=== PATIENT | male | born 1980 | race Caucasian/White ===

== ENCOUNTER 2017-10-19 11:27 | Emergency (ER) | payer BC ==
--- NOTE | 2017-10-19 11:40 | EDM.PDOC ---
ED HPI GENERAL MEDICAL PROBLEM - General Chief Complaint: ENT Problem Stated Complaint: left lower tooth pain Time Seen by Provider: 10/19/17 11:35 Source of Information: Reports: Patient, Family History Limitations: Reports: No Limitations - History of Present Illness INITIAL COMMENTS - FREE TEXT/NARRATIVE: Patient is 37-year-old who seen with chief complaint of left lower tooth ache patient states this has been going on for 2 weeks has been on clindamycin and Motrin with no improvement has a schedule appointment with a dentist tomorrow Onset: Gradual Duration: Week(s):, Getting Worse Location: Reports: Face Quality: Reports: Ache, Throbbing Severity: Moderate Improves with: Reports: Medication Worsens with: Reports: None Context: Reports: Other (Dental cavity) Associated Symptoms: Reports: No Other Symptoms Treatments DETECTIVE NARCOTICS AND VICE: Reports: Acetaminophen, NSAIDS - Related Data Allergies Allergy/AdvReac Type Severity Reaction Status Date / Time No Known Allergies Allergy Verified 10/19/17 20:57 Home Meds: Home Meds . [No Known Home Meds] 10/19/17 [History] ED ROS GENERAL - Review of Systems Review Of Systems: See Below Constitutional: Reports: No Symptoms HEENT: Reports: Dental Pain Respiratory: Reports: No Symptoms Cardiovascular: Reports: No Symptoms Endocrine: Reports: No Symptoms GI/Abdominal: Reports: No Symptoms : Reports: No Symptoms Musculoskeletal: Reports: No Symptoms Skin: Reports: No Symptoms Neurological: Reports: No Symptoms Psychiatric: Reports: No Symptoms Hematologic/Lymphatic: Reports: No Symptoms Immunologic: Reports: No Symptoms ED EXAM, GENERAL - Physical Exam Exam: See Below Exam Limited By: No Limitations General Appearance: Alert, WD/WN, No Apparent Distress Ears: Normal External Exam, Normal Canal, Hearing Grossly Normal, Normal TMs Ear Exam: Bilateral Ear: Auricle Normal, Canal Normal, TM normal Nose: Normal Inspection, Normal Mucosa, No Blood Throat/Mouth: Other (Toothache) Head: Atraumatic, Normocephalic, Facial Swelling Neck: Normal Inspection, Supple, Non-Tender, Full Range of Motion Respiratory/Chest: No Respiratory Distress, Lungs Clear, Normal Breath Sounds, No Accessory Muscle Use, Chest Non-Tender Cardiovascular: Normal Peripheral Pulses, Regular Rate, Rhythm, No Edema, No Gallop, No JVD, No Murmur, No Rub GI/Abdominal: Normal Bowel Sounds, Soft, Non-Tender, No Organomegaly, No Distention, No Abnormal Bruit, No Mass (Male) Exam: Deferred Rectal (Males) Exam: Deferred Back Exam: Normal Inspection, Full Range of Motion, NT Extremities: Normal Inspection, Normal Range of Motion, Non-Tender, Normal Capillary Refill, No Pedal Edema Neurological: Alert, Oriented, CN II-XII Intact, Normal Cognition, Normal Gait, Normal Reflexes, No Motor/Sensory Deficits Psychiatric: Normal Affect, Normal Mood Course - Vital Signs Last Recorded V/S: Last Vital Signs Temp 98.1 F 10/19/17 11:27 Pulse 87 10/19/17 11:27 Resp 16 10/19/17 11:27 BP 142/120 H 10/19/17 11:27 Pulse Ox 99 10/19/17 11:27 Departure - Departure Time of Disposition: 11:39 Disposition: Home, Self-Care 01 Clinical Impression: Dental caries extending into dentin - Discharge Information Instructions: Acetaminophen; Codeine tablets Referrals: PCP,None [Primary Care Provider] - Forms: ED Department Discharge Care Plan Goals: Patient is to continue his clindamycin as order we'll start him on Tylenol No. 3 one tablet every 4-6 hours for pain he is to follow-up with the dentist of choice options given
== END 2017-10-19 11:55 | disposition home or self-care (01) ==
LOC: LL.ED 11:27
DX: K02.9 Dental caries, unspecified (principal)
CPT/HCPCS: 99282

== ENCOUNTER 2020-10-03 06:33 | Emergency (ER) | payer SELFPAY ==
[2020-10-03] MEDS ORDERED: Metoprolol Tartrate 25 MG Tab PO ONE (07:26)
--- NOTE | 2020-10-03 07:30 | EDM.PDOC ---
ED HPI GENERAL MEDICAL PROBLEM - General Chief Complaint: General Stated Complaint: HTN Time Seen by Provider: 10/03/20 07:00 Source of Information: Reports: Patient History Limitations: Reports: No Limitations - History of Present Illness INITIAL COMMENTS - FREE TEXT/NARRATIVE: Patient concerned that his blood pressure might be too high. Has own BP cuff at home and reports it was around 165/85. He restarted his BP meds last week after not taking them for a while (doesn't specify how long). Had some dizziness this morning which got him concerned. Didn't feel quite right. Does not have the pill bottles with him and does not remember what the medications are named. Denies other changes such as fever/chills/fatigue. No HEENT changes otherwise such as sore throat or congestion. No headache. No chest pain/palpitations/sweating. Denies nausea/emesis/bowel changes. No other acute changes reported. - Related Data Allergies Allergy/AdvReac Type Severity Reaction Status Date / Time Penicillins Allergy Rash Verified 10/03/20 06:45 Home Meds: Home Meds . [No Known Home Meds] 10/19/17 [History] Past Medical History - Past Health History Medical/Surgical History: Denies Medical/Surgical History HEENT History: Reports: Other (See Below) (Poor dental health) Cardiovascular History: Reports: Hypertension ED ROS GENERAL - Review of Systems Review Of Systems: Comprehensive ROS is negative, except as noted in HPI. ED EXAM, GENERAL - Physical Exam Exam: See Below Exam Limited By: No Limitations General Appearance: Alert, WD/WN, No Apparent Distress Eye Exam: Bilateral Eye: EOMI, PERRL Ears: Normal External Exam, Hearing Grossly Normal Nose: No: Nasal Deformity, Nasal Swelling, Nasal Drainage Throat/Mouth: Normal Lips, Normal Voice, No Airway Compromise, Other (Poor dental condition) Head: Atraumatic, Normocephalic Neck: Supple Respiratory/Chest: No Respiratory Distress, Lungs Clear, Normal Breath Sounds, No Accessory Muscle Use Cardiovascular: Normal Peripheral Pulses, Regular Rate, Rhythm, No Murmur GI/Abdominal: Normal Bowel Sounds, Soft, Non-Tender, No Distention (Male) Exam: Deferred Rectal (Males) Exam: Deferred Back Exam: No: CVA Tenderness (L), CVA Tenderness (R), Muscle Spasm Extremities: Normal Range of Motion, Normal Capillary Refill Neurological: Alert, Oriented, Normal Cognition, Normal Gait, No Motor/Sensory Deficits Psychiatric: Normal Affect, Normal Mood Skin Exam: Warm, Dry, Intact, Normal Color Course - Vital Signs Last Recorded V/S: Last Vital Signs Temp 36.4 C 10/03/20 06:34 Pulse 75 10/03/20 07:32 Resp 14 10/03/20 06:34 BP 128/85 10/03/20 07:32 Pulse Ox 100 10/03/20 06:34 - Orders/Labs/Meds Meds: Medications Discontinued Medications Generic Name Dose Route Start Last Admin Trade Name Kris PRN Reason Stop Dose Admin Metoprolol Tartrate 25 mg 10/03/20 07:26 10/03/20 07:32 Lopressor PO 10/03/20 07:27 25 mg ONETIME ONE Administration - Re-Assessments/Exams Free Text/Narrative Re-Assessment/Exam: 10/03/20 07:47 Patient's BP 146/99 in ER. Discussed with patient that it is high and Metoprolol 25mg ordered. He was given reassurance that the reading was not in the extremely high range. Patient declined any lab work/further evaluation at this time and instead wishes to follow up at the local [facility] for any lab work and further evaluation of hypertension. He was cautioned as far as his morning complaint of not feeling like usual self/dizziness may be from something else, such as developing viral illness. Advised to continue to observe for changes. Recommended to him to check his BP TID and keep log and bring that to his [facility] appointment. Precautions reviewed and he is to follow up in the ER for recheck if he has sudden worsening. He is agreeable with plan. Departure - Departure Time of Disposition: 07:26 Disposition: Home, Self-Care 01 Condition: Good Clinical Impression: Hypertension - Discharge Information *PRESCRIPTION DRUG MONITORING PROGRAM REVIEWED*: Not Applicable *COPY OF PRESCRIPTION DRUG MONITORING REPORT IN PATIENT DIDIER: Not Applicable Referrals: Cait Thornton PA-C [Primary Care Provider] - Forms: ED Department Discharge, ED Return to Work/School Form Additional Instructions: Take it easy today. Start keeping track of your blood pressure patterns as we discussed. Sit in a comfortable spot for 5 min then take a reading and write it down. Do this once every morning/afternoon/evening so you get a good idea of your blood pressure pattern. This will help later in making certain that your medications are working correctly ALL day. Get an appointment at the clinic/soonest available and get your blood pressure medications updated. Continue to work on adjusting them until you have good blood pressure control. Follow up as needed if you have problems. Additionally, watch for changes. As we discussed you can start feeling a bit "off" when you are starting to come down with a cold/viral infection. Sepsis Event Note (ED) - Evaluation Sepsis Screening Result: No Definite Risk - Focused Exam Vital Signs: Vital Signs Temp Pulse Pulse Resp BP BP Pulse Ox 10/03/20 07:32 75 128/85 10/03/20 06:34 36.4 C 89 14 146/99 H 100
== END 2020-10-03 07:42 | disposition home or self-care (01) ==
LOC: LL.ED 06:33
DX: I10 Essential (primary) hypertension (principal); Z88.0 Allergy status to penicillin
CPT/HCPCS: 99283; A9270-GY

== ENCOUNTER 2020-10-06 13:39 | Emergency (ER) | payer SELFPAY ==
--- NOTE | 2020-10-06 14:16 | EDM.PDOC ---
ED HPI GENERAL MEDICAL PROBLEM - General Chief Complaint: General Stated Complaint: loss of taste or smell Time Seen by Provider: 10/06/20 14:00 Source of Information: Reports: Patient History Limitations: Reports: No Limitations - History of Present Illness INITIAL COMMENTS - FREE TEXT/NARRATIVE: He presents to the emergency department complaining of loss of taste and smell. He is concerned about coronavirus infection. He denies any cough or shortness of breath. No chest pain or tightness. No headache, dizziness or lightheadedness. No muscle aches. No weakness. Basically feels completely fine other than the loss of taste and smell. He noticed that today. He was seen 2 days ago with an elevated blood pressure, and apparently his blood pressure was mildly elevated again at home today. - Related Data Allergies Allergy/AdvReac Type Severity Reaction Status Date / Time Penicillins Allergy Rash Verified 10/06/20 13:42 Home Meds: Home Meds Aspirin [Aspirin EC] 1 tab PO DAILY 10/06/20 [History] hydroCHLOROthiazide [Hydrochlorothiazide] 1 tab PO DAILY 10/06/20 [History] Past Medical History - Past Health History Medical/Surgical History: Denies Medical/Surgical History HEENT History: Reports: Other (See Below) Cardiovascular History: Reports: Hypertension Social & Family History - Caffeine Use Caffeine Use: Reports: Coffee ED ROS GENERAL - Review of Systems Review Of Systems: See Below Constitutional: Denies: Fever, Chills Respiratory: Denies: Shortness of Breath, Cough Cardiovascular: Denies: Chest Pain, Palpitations Endocrine: Denies: Fatigue GI/Abdominal: Denies: Abdominal Pain, Diarrhea, Nausea, Vomiting : Denies: Dysuria, Frequency, Urgency Skin: Denies: Rash Neurological: Denies: Confusion, Dizziness Psychiatric: Denies: Anxiety, Depression ED EXAM, GENERAL - Physical Exam Exam: See Below Exam Limited By: No Limitations General Appearance: Alert, WD/WN Ears: Normal External Exam, Normal Canal, Hearing Grossly Normal, Normal TMs Nose: Normal Inspection, Normal Mucosa, No Blood Throat/Mouth: Normal Lips, Normal Teeth, Normal Gums, Normal Oropharynx, Normal Voice, No Airway Compromise Head: Atraumatic, Normocephalic Neck: Non-Tender. No: Lymphadenopathy (L), Lymphadenopathy (R) Respiratory/Chest: No Respiratory Distress, Lungs Clear, Normal Breath Sounds Cardiovascular: Regular Rate, Rhythm, No Edema, No Gallop, No Murmur GI/Abdominal: Normal Bowel Sounds, Soft, Non-Tender Neurological: Alert, Oriented Psychiatric: Normal Affect Course - Vital Signs Last Recorded V/S: Last Vital Signs Temp 36.6 C 10/06/20 13:44 Pulse 100 10/06/20 13:44 Resp 18 10/06/20 13:44 BP 138/86 10/06/20 13:44 Pulse Ox 100 10/06/20 13:44 Departure - Departure Time of Disposition: 14:15 Disposition: Home, Self-Care 01 Condition: Good Clinical Impression: Loss of taste, Hypertension - Discharge Information *PRESCRIPTION DRUG MONITORING PROGRAM REVIEWED*: Not Applicable *COPY OF PRESCRIPTION DRUG MONITORING REPORT IN PATIENT DIDIER: Not Applicable Additional Instructions: Quarantine at home until results are available. Push fluids. Recommended he keep a record of his blood pressures over the next 2 weeks and notify his primary provider with that results and possible need for adjustment in his blood pressure medications. Sepsis Event Note (ED) - Evaluation Sepsis Screening Result: No Definite Risk - Focused Exam Vital Signs: Vital Signs Temp Pulse Resp BP Pulse Ox 10/06/20 13:44 36.6 C 100 18 138/86 100
[2020-10-07] MEDS ORDERED: Hydrochlorothiazide 25 MG Tab PO SCH (08:00)
[2020-10-07] MEDS ORDERED: Aspirin 81 MG Tab.EC PO SCH (08:00)
== END 2020-10-06 14:35 | disposition home or self-care (01) ==
LOC: LL.ED 13:39
DX: I10 Essential (primary) hypertension (principal); R43.9 Unspecified disturbances of smell and taste; Z88.0 Allergy status to penicillin; Z79.899 Other long term (current) drug therapy; Z20.828 Contact with and (suspected) exposure to other viral communicable diseases
CPT/HCPCS: 99283; U0002